=== PATIENT | male | born 1985 | race Caucasian/White ===

== ENCOUNTER 2019-08-01 08:23 | Emergency (ER) | payer MEDICAID, OTHER ==
[~2019-08-01] VITALS: Ht 182.9 cm; Wt 127.0 kg
[2019-08-01] MEDS ORDERED: cloNIDine HCL 0.1 MG TAB PO ONE (08:45)
[2019-08-01 12:09] VITALS: BP 121/84
== END 2019-08-01 11:55 | disposition home or self-care (01) ==
LOC: ER 08:23 → EDBD 08:23 → ER 11:55
DX: F41.9 Anxiety disorder, unspecified (principal); I10 Essential (primary) hypertension; F20.9 Schizophrenia, unspecified; Z88.8 Allergy status to other drugs, medicaments and biological substances